=== PATIENT | male | born 1995 | race Caucasian/White ===

== ENCOUNTER 2020-01-21 21:08 | Emergency (ER) | payer SELFPAY ==
[~2020-01-21] VITALS: Ht 180.3 cm; Wt 145.1 kg
[2020-01-21 21:23] VITALS: BP 122/62; Ht 180.3 cm; Wt 145.1 kg
[2020-01-21 21:57] LABS: CARBON DIOXIDE 29.2 mmol/L (21-32); CHLORIDE SERUM 101 mmol/L (98-107); CREATININE SERUM 0.9 mg/dL (0.7-1.3); GFR1 > 60 mL/min; GLUCOSE SERUM 88 mg/dL (74-106); POTASSIUM SERUM 3.9 mmol/L (3.5-5.1); SODIUM SERUM 137 mmol/L (136-145)
[2020-01-21 22:01] LABS: ALBUMIN 3.4 g/dL (3.4-5.0); ALKALINE PHOSPHATASE 85 U/L (46-116); ALT/SGPT 21 U/L (16-63); AST/SGOT 14 U/L (15-37); BILIRUBIN TOTAL 0.2 mg/dL (0.20-1.00); TOTAL PROTEIN, SERUM 6.9 g/dL (6.4-8.2)
[2020-01-21 23:07] LABS: AMPHETAMINE QUAL UR NONE DETECTED (See below)
== END 2020-01-21 22:58 | disposition other institution (70) ==
LOC: EDBD 21:08 → ED 21:08
PROVIDERS: Specialist
DX: F19.10 Other psychoactive substance abuse, uncomplicated (principal); V49.9XXA Car occupant (driver) (passenger) injured in unspecified traffic accident, initial encounter; Y93.89 Activity, other specified; Y92.89 Other specified places as the place of occurrence of the external cause; Y99.8 Other external cause status
CPT/HCPCS: G0480

== ENCOUNTER 2020-01-21 21:08 | Emergency (ER) | payer OTHER | END 2020-01-21 22:58 | disposition other institution (70) | LOC: EDBD 21:08 → ED 21:08 | DX: Z02.89 Encounter for other administrative examinations (principal) ==